=== PATIENT | male | born 1965 | race Caucasian/White ===

== ENCOUNTER 2017-04-13 11:51 | Emergency (ER) | payer OTHER ==
[~2017-04-13 11:51] MED LIST: ASAB PO; CELEXA40 MG PO; COREG25 PO; GLUCPH PO; LORT7 PO; NEUR600 PO; REMERON30 MG PO; ZOCOR40 PO
[2017-04-13 13:31] LABS: INTERNATIONAL NORMAL RATI 1.1 UNITS (-); PROTIME (NOT ORD) 14.1 SEC (12.0-14.5)
[2017-04-13 13:35] LABS: PARTIAL THROMBO TIME 22.9 SEC (22.5-37.2)
[2017-04-13 13:42] LABS: ALBUMIN 4.5 G/DL (3.5-5.0); ALKALINE PHOSPHATASE 42 U/L (45-117); CALCIUM, SERUM 9.6 MG/DL (8.5-10.4); CHEST PAIN PROFILE TAT 0 Hrs 24 Mins; CHLORIDE, SERUM 102 MMOL/L (96-112); CO2 (CARBON DIOXIDE) 28 MMOL/L (24-34); CPK 216 U/L (0-200); CREATININE 1.06 MG/DL (0.70-1.30); DIRECT BILIRUBIN 0.2 MG/DL (0.0-0.4); GFR AFRICAN AMERICAN 92 ML/MIN (>=60); GFR NON AFRICAN AMERICAN 80 ML/MIN (>=60); INDIRECT BILIRUBIN(NOT ORDER) 0.6 MG/DL (0.1-0.9); POTASSIUM, SERUM 4.3 MMOL/L (3.5-5.3); SGPT(ALT) 50 U/L (5-65); SODIUM, SERUM 137 MMOL/L (135-148); TOTAL BILIRUBIN 0.8 MG/DL (0-1.2); TOTAL PROTEIN 7.8 G/DL (6.0-8.5); TROPONIN I <0.02 NG/ML (<0.05)
[2017-04-13 13:43] LABS: BUN (BLOOD UREA NITROGEN) 15 MG/DL (6-23); GLUCOSE, SERUM 146 MG/DL (60-99); SGOT(AST) 36 U/L (5-40)
[2017-04-13 13:53] LABS: LACTATE 1.7 MMOL/L (0.3-2.4)
[2017-04-13 14:03] LABS: ASCORBIC ACID (UR NOT ORDER) 40 (NEG); BILIRUBIN, URINE NEGATIVE (NEG); KETONE, URINE NEGATIVE (NEG); LEUKOCYTE ESTERASE(NOT OR NEG (NEG); NITRITE (URINE) NEG (NEG); WBC (NOT ORDERED) (RFLEX) 1 (0-5)
[2017-04-13 15:01] LABS: BASOPHILS 0.5 %; BASOPHILS ABSOLUTE 0.05 10/3/uL (0.0-0.16); EOSINOPHILS 1.3 %; EOSINOPHILS ABSOLUTE 0.13 10/3/uL (0.0-0.53); ER CBC TAT 0 Hrs 02 Mins; HEMATOCRIT 43.5 % (40.0-51.0); HEMOGLOBIN 15.2 g/dL (13.6-17.8); IMMATURE GRANULOCYTES 0.3 %; IMMATURE GRANULOCYTES ABSOLUTE 0.03 10/3/uL (0.0-0.11); LYMPHOCYTES 27.3 %; LYMPHOCYTES ABSOLUTE 2.66 10/3/uL (0.67-4.30); MEAN CORPUS HGB CONC 34.9 g/dL (32.0-36.0); MEAN CORPUSCULAR HEMOGLOB 32.4 pg (26.0-34.0); MEAN PLATELET VOLUME 8.7 fL (9.2-13.0); MONOCYTES 10.2 %; MONOCYTES ABSOLUTE 0.99 10/3/uL (0.21-1.20); NEUTROPHILS 60.4 %; NEUTROPHILS ABSOLUTE 5.89 10/3/uL (2.02-8.40); RBC DISTRIBUTION WIDTH 13.1 % (12.0-16.0); RED CELL COUNT 4.69 10/6/uL (4.7-6.1); WHITE BLOOD CELLS 9.8 10/3/uL (4.5-10.5)
[2017-04-13 15:02] LABS: MANUAL DIFF NO %; MEAN CORPUSCULAR VOLUME 92.8 fL (80-100); PLATELET COUNT 163 10/3/uL (150-400)
== END 2017-04-13 16:30 | disposition home or self-care (01) ==
LOC: ER 11:51
PROVIDERS: Emergency Medicine
DX: R00.1 Bradycardia, unspecified (principal); R55 Syncope and collapse; R53.1 Weakness; Z95.1 Presence of aortocoronary bypass graft; Z79.84 Long term (current) use of oral hypoglycemic drugs; Z79.82 Long term (current) use of aspirin
CPT/HCPCS: 71010; 80048; 80076; 81001; 82550; 83605; 83735; 84484; 85025; 85610; 85730; 93005; 99284

== ENCOUNTER 2017-04-19 14:38 | Observation (INO) | payer OTHER ==
--- NOTE | ~2017-04-19 | HP ---
History And Physical [address] [facility] [place]. [address] NAME: ARACELI JANE : 61 STATUS : ADM Kelly PAT#: [id number] AGE: 51 ADM/REG DATE : 04/19/17 MR#: [id number] REPORT SERV DATE: 04/20/17 DICTATED BY: YURI SERRA DATE: 04/20/17 REPORT STATUS : Draft TRANSCRIBED BY: MODL DATE: 04/20/17 DATE OF ADMISSION: 04/19/2017 CASHIER AND SALESPERSON: Slade Rubi MD CHIEF COMPLAINT: Fatigue and episodic chest pain for two weeks dissimilar to previous cardiac event. HISTORY OF PRESENT ILLNESS: A very pleasant 51-year-old white gentleman with known history of CAD; status post CABG x4, approximately 2008 at [facility]. The patient states he has been fatigued and tired for the past two weeks. He reports some episodes of chest pain over his left chest that do not radiate elsewhere. He denies any associated shortness of breath, nausea, diaphoresis, dizziness, or belching, although he does state that he had a passing out event at a walk-in clinic on 04/13/2017, was sent here for further evaluation and treatment that day via ambulance, but was dismissed home from the emergency room. He states at that time his statin was discontinued due to "low heart rate" and his carvedilol dose was reduced presumably for bradycardia. The patient rates his chest discomfort a 4/10 at its most intense. At the time of interview in the [facility], he is pain free. He states the episode lasted approximately two hours in duration. There is no clear exertional component described. He took no medications prior to coming to the hospital. The patient has never had a stress test previously. The patient reports a personal history of possibly two heart attacks. Denies history of stroke, DVT, or pulmonary embolus. The patient denies any recent fever or chills, was treated for cellulitis in his leg approximately six months ago. Denies palpitations. Questionable syncopal event on 04/13/2017. Denies PND or orthopnea. PAST MEDICAL HISTORY: 1. CAD. a. Self reports NM x2. b. Status post CABG x4, 2008, at [place]. 2. Hypertension. 3. Dyslipidemia, off statin for one to two weeks. 4. AODM, diet managed. 5. Anxiety. PAST SURGICAL HISTORY: 1. CABG x4, 2009, at [place]. 2. Cervical fusion. 3. Appendectomy. 4. Tonsillectomy. SOCIAL HISTORY: He is . Does not have any children. He works in [employer] at [employer]. He is active on his job. Does not have a structured exercise routine. Denies tobacco, alcohol, or illicits. History And Physical [address] [address] NAME: ARACELI JANE : 61 STATUS : ADM Kelly PAT#: [id number] AGE: 51 ADM/REG DATE : 04/19/17 MR#: [id number] REPORT SERV DATE: 04/20/17 DICTATED BY: YURI SERRA DATE: 04/20/17 REPORT STATUS : Draft TRANSCRIBED BY: JONES DATE: 04/20/17 FAMILY HISTORY: Mother with a stroke at 76, remains alive at 77. Father's medical history unknown. REVIEW OF SYSTEMS: A 14-point review of systems performed, significant for HPI. No other contributory diagnoses identified. ALLERGIES: NO KNOWN DRUG ALLERGIES. HOME MEDICATIONS: Xanax 0.5 three times daily; aspirin 81 mg nightly; carvedilol 6.25 mg twice daily; vitamin D3, 1000 units at bedtime; Celexa 40 mg daily; Neurontin 300 mg twice daily; hydrochlorothiazide 25 mg daily; lisinopril 10 mg twice daily; Remeron 30 mg nightly; multivitamin daily; Percocet 7.5/325 every six hours p.r.n. PHYSICAL EXAMINATION: VITAL SIGNS: Blood pressure 151/96, pulse 67, respirations 15, temperature 98.0, O2 saturation 96% on room air. Height 5 feet 9 inches. Weight 208 pounds. BMI 31. GENERAL: Cooperative, in no apparent distress. HEENT: Pupils 2 mm, sclera nonicteric. Nares patent. Moist mucous membranes. No xanthelasma. NECK: Trachea midline, no thyromegaly. No JVD. No bruits. LYMPH: No cervical lymphadenopathy. No supraclavicular lymphadenopathy. RESPIRATORY: Unlabored respirations. Breath sounds clear bilaterally to posterior auscultation. No wheezes or rhonchi. CARDIOVASCULAR: Regular rate. No murmur, rub or gallop appreciated. Extremities without edema. Pulses 2+ bilaterally. ABDOMEN: Soft, nontender, nondistended, normal bowel sounds auscultated throughout. No organomegaly. SKIN: Warm, dry extremities. No pallor, or cyanosis. PSYCHIATRIC: Appropriate affect. Alert, oriented x3. LABORATORY DATA: Troponin less than 0.02 x3. TSH 2.140. Potassium 4.4, BUN 11, creatinine 0.93, glucose 83, magnesium 2.0. BNP 4.1. WBC 8.1, hemoglobin 15.2, hematocrit 42.6, and platelet count 257,000. EKG: Sinus rhythm, nonspecific T-waves, rare PVC. Echo, 10/2014: EF 48%. Posterior pericardium appears thickened. ASSESSMENT AND PLAN: 1. Substernal chest pain with fatigue. The patient has been observed in the [facility] overnight to rule out myocardial infarction with serial enzymes and serial EKGs and held n.p.o. We will proceed with MPI today. The patient will be discharged home if low risk, no ischemia. If anything suggestive of ischemia, Cardiology referral will be initiated. Otherwise, the patient will be asked to follow up with PCP and Dr. Rubi as appropriate. 2. Recent questionable syncopal event on 04/13/2017. We will check echo. Follow up with Cardiology. TSH 2.140. History And Physical [address] [address] NAME: ARACELI JANE : 61 STATUS : ADM Kelly PAT#: [id number] AGE: 51 ADM/REG DATE : 04/19/17 MR#: [id number] REPORT SERV DATE: 04/20/17 DICTATED BY: YURI SERRA DATE: 04/20/17 REPORT STATUS : Draft TRANSCRIBED BY: MODL DATE: 04/20/17 3. Coronary artery disease. Continue home medications. The patient reports beta-bri, carvedilol decreased to 6.25 twice daily secondary to bradycardia. 4. Hypertension. Monitor blood pressure and continue home medications. 5. Dyslipidemia. Currently, off statin for approximately one week. We will check a fasting lipid panel and resume simvastatin 40 mg nightly as appropriate. 6. History of coronary artery bypass graft. Obtain CABG report from [place] performed in 2008. 7. Fatigue. TSH 2.140. VIC/MODL JV Farmer, RN [facility] / [id number] CC: JV Farmer, RN [facility] Luke Ashraf MD
[2017-04-19 14:18] LABS: BASOPHILS 0.9 %; BASOPHILS ABSOLUTE 0.07 10/3/uL (0.0-0.16); EOSINOPHILS ABSOLUTE 0.16 10/3/uL (0.0-0.53); ER CBC TAT 0 Hrs 09 Mins; HEMATOCRIT 42.6 % (40.0-51.0); HEMOGLOBIN 15.2 g/dL (13.6-17.8); IMMATURE GRANULOCYTES 0.2 %; IMMATURE GRANULOCYTES ABSOLUTE 0.02 10/3/uL (0.0-0.11); LYMPHOCYTES 43.8 %; LYMPHOCYTES ABSOLUTE 3.53 10/3/uL (0.67-4.30); MEAN CORPUS HGB CONC 35.7 g/dL (32.0-36.0); MEAN CORPUSCULAR HEMOGLOB 32.9 pg (26.0-34.0); MEAN CORPUSCULAR VOLUME 92.2 fL (80-100); MEAN PLATELET VOLUME 9.1 fL (9.2-13.0); MONOCYTES 11.3 %; MONOCYTES ABSOLUTE 0.91 10/3/uL (0.21-1.20); NEUTROPHILS 41.8 %; NEUTROPHILS ABSOLUTE 3.37 10/3/uL (2.02-8.40); RBC DISTRIBUTION WIDTH 12.7 % (12.0-16.0); RED CELL COUNT 4.62 10/6/uL (4.7-6.1); WHITE BLOOD CELLS 8.1 10/3/uL (4.5-10.5)
[2017-04-19 14:19] LABS: MANUAL DIFF NO %; PLATELET COUNT 257 10/3/uL (150-400)
[2017-04-19 14:25] LABS: INTERNATIONAL NORMAL RATI 1.1 UNITS (-); PARTIAL THROMBO TIME 30.4 SEC (22.5-37.2); PROTIME (NOT ORD) 13.7 SEC (12.0-14.5)
[2017-04-19 14:32] LABS: CALCIUM, SERUM 9.7 MG/DL (8.5-10.4); CHEST PAIN PROFILE TAT 0 Hrs 23 Mins; CHLORIDE, SERUM 101 MMOL/L (96-112); CO2 (CARBON DIOXIDE) 28 MMOL/L (24-34); CREATININE 0.93 MG/DL (0.70-1.30); GFR AFRICAN AMERICAN 108 ML/MIN (>=60); GFR NON AFRICAN AMERICAN 93 ML/MIN (>=60); SODIUM, SERUM 136 MMOL/L (135-148); TROPONIN I <0.02 NG/ML (<0.05)
[2017-04-19 14:33] LABS: BUN (BLOOD UREA NITROGEN) 11 MG/DL (6-23); GLUCOSE, SERUM 83 MG/DL (60-99); POTASSIUM, SERUM 4.4 MMOL/L (3.5-5.3)
[2017-04-19] MEDS ORDERED: HALF81 PO (16:47)
[2017-04-19] MEDS ORDERED: MULTIVITAMI1 PO (16:47)
[2017-04-19] MEDS ORDERED: HCTZ25B PO (16:49)
[2017-04-19] MEDS ORDERED: COREG6 PO (16:50)
[2017-04-19] MEDS ORDERED: PERCOCET 7.5/321 TAB PO (16:51)
[2017-04-19] MEDS ORDERED: NEUR300 PO (16:53)
[2017-04-19] MEDS ORDERED: CELEXA40 MG PO (16:53)
[2017-04-19] MEDS ORDERED: VITAMIN D31000 UNIT PO (16:54)
[2017-04-19] MEDS ORDERED: X5 PO (16:55)
[2017-04-19] MEDS ORDERED: REMERON30 MG PO (16:55)
[2017-04-19] MEDS ORDERED: PRIN10 PO (16:56)
[2017-04-20 09:06] LABS: CHOL/HDL RATIO(NOT ORDER) 4.1 (0-5)
== END 2017-04-20 15:08 | disposition home or self-care (01) ==
LOC: ER 14:38 → CDU1 15:48 → CDU2 16:06
PROVIDERS: Clinical Nurse Specialist; Physician Assistant
DX: R07.2 Precordial pain (principal); R55 Syncope and collapse; I25.10 Atherosclerotic heart disease of native coronary artery without angina pectoris; I10 Essential (primary) hypertension; E78.5 Hyperlipidemia, unspecified; R53.83 Other fatigue; Z95.5 Presence of coronary angioplasty implant and graft; Z90.49 Acquired absence of other specified parts of digestive tract; Z90.89 Acquired absence of other organs; Z98.890 Other specified postprocedural states
CPT/HCPCS: 71010; 78452; 80048; 80061; 83735; 83880; 84443; 84484; 85025; 85610; 85730; 93005; 93017; 93306; 99285; A9270-GY; A9502; G0378